=== PATIENT | female | born 1990 | race Two or more races ===

== ENCOUNTER 2018-09-19 17:10 | Emergency (ER) | payer SELFPAY ==
[~2018-09-19] VITALS: Ht 165.1 cm; Wt 68.0 kg
[2018-09-19 17:59] VITALS: BP 126/68
[2018-09-19] MEDS ORDERED: BACLOFEN 10 MG TAB PO ONE (19:15)
[2018-09-19] MEDS ORDERED: HYDROcodone-ACET 10/325MG TAB PO ONE (19:15)
== END 2018-09-19 20:12 | disposition home or self-care (01) ==
LOC: ER 17:10
DX: S62.347A Nondisplaced fracture of base of fifth metacarpal bone, left hand, initial encounter for closed fracture (principal); S60.212A Contusion of left wrist, initial encounter; M62.838 Other muscle spasm; M25.511 Pain in right shoulder; Z88.6 Allergy status to analgesic agent; V49.49XA Driver injured in collision with other motor vehicles in traffic accident, initial encounter; Y93.89 Activity, other specified; Y99.8 Other external cause status; Y92.410 Unspecified street and highway as the place of occurrence of the external cause
CPT/HCPCS: 73030; 73110